=== PATIENT | male | born 1985 | race African-American/Black ===

== ENCOUNTER 2018-06-10 13:49 | Emergency (ER) | payer SELFPAY ==
[~2018-06-10] VITALS: Ht 180.3 cm; Wt 62.0 kg
[2018-06-10 13:55] VITALS: BP 115/66
== END 2018-06-10 19:30 | disposition left against medical advice (07) ==
LOC: ER 18:45
DX: R10.11 Right upper quadrant pain (principal); Z53.21 Procedure and treatment not carried out due to patient leaving prior to being seen by health care provider

== ENCOUNTER 2018-11-19 18:30 | Emergency (ER) | payer MEDICAID ==
[~2018-11-19] VITALS: Ht 182.9 cm; Wt 138.0 kg
[2018-11-19 20:47] VITALS: BP 125/77
[2018-11-19] MEDS ORDERED: IBUPROFEN 600MG TABLET PO ONE (21:30)
== END 2018-11-19 23:15 | disposition home or self-care (01) ==
LOC: ER 18:30
DX: S40.212A Abrasion of left shoulder, initial encounter (principal); S40.211A Abrasion of right shoulder, initial encounter; M54.6 Pain in thoracic spine; M54.9 Dorsalgia, unspecified; Y08.89XA Assault by other specified means, initial encounter; Y93.89 Activity, other specified; Y92.89 Other specified places as the place of occurrence of the external cause; Y99.8 Other external cause status
CPT/HCPCS: 73010; 99283

== ENCOUNTER 2021-08-11 22:45 | Emergency (ER) | payer MEDICAID ==
[~2021-08-11] VITALS: Ht 180.3 cm; Wt 77.0 kg
[2021-08-11] MEDS ORDERED: METHOCARBAMOL 500MG TABLET PO ONE (23:15)
[2021-08-11] MEDS ORDERED: HYDROCODONE/ACETAMINOPHEN 5/325MG TABLET PO ONE (23:15)
[2021-08-12] MEDS ORDERED: NAPR-681 MT (01:13)
[2021-08-12] MEDS ORDERED: METH-773 MT (01:13)
[2021-08-12 01:29] VITALS: BP 123/84
== END 2021-08-12 01:30 | disposition home or self-care (01) ==
LOC: ER 22:45
DX: S16.1XXA Strain of muscle, fascia and tendon at neck level, initial encounter (principal); V49.49XA Driver injured in collision with other motor vehicles in traffic accident, initial encounter; Y93.89 Activity, other specified; Y92.89 Other specified places as the place of occurrence of the external cause; Y99.8 Other external cause status
CPT/HCPCS: 73030; 73080; 73562; 99284

== ENCOUNTER 2021-11-11 00:08 | Emergency (ER) | payer MEDICAID ==
[~2021-11-11] VITALS: Ht 180.3 cm; Wt 72.0 kg
[~2021-11-11 00:08] MED LIST: METH-773 MT; NAPR-681 MT
[2021-11-11] MEDS ORDERED: METOCLOPRAMIDE HCL 10MG TABLET PO ONE (00:45)
[2021-11-11] MEDS ORDERED: KETOROLAC 60MG/2ML VIAL IM ONE (00:45)
[2021-11-11] MEDS ORDERED: IBUPROFEN 800MG TABLET PO ONE (02:30)
[2021-11-11] MEDS ORDERED: KETOROLAC 60MG/2ML VIAL IM SCH (02:30)
[2021-11-11] MEDS ORDERED: METOCLOPRAMIDE HCL 10MG TABLET PO SCH (02:30)
[2021-11-11] MEDS ORDERED: NAPR-681 MT (02:41)
[2021-11-11 02:55] VITALS: BP 125/78
== END 2021-11-11 03:30 | disposition home or self-care (01) ==
LOC: ER 00:43
DX: G44.209 Tension-type headache, unspecified, not intractable (principal)
CPT/HCPCS: 99281; J1885; J8597